=== PATIENT | male | born 1960 | race Caucasian/White ===

== ENCOUNTER 2021-12-21 11:57 | Emergency (ER) | payer SELFPAY ==
--- OUTSIDE RECORDS SUMMARY | 2021-12-21 12:01 | XMS REPORT | Continuity of Care Document ---
:1960 Author Organization [facility] t Address [address] Manzanares [address] [place] [id number] Care Team Providers Name Role Phone Unavailable Unavailable Unavailable Problems This patient has no known problems. Allergies, Adverse Reactions, Alerts This patient has no known allergies or adverse reactions. Medications This patient has no known medications. Procedures This patient has no known procedures. Results Test Description Test Time Test Comments Results Result Comments Source THYROID II PROFILE (TU,T4,FTI,TSH) 2021-11-14 06:28:44 Test Item Value Reference Range Interpretation Comme nts T-UPTAKE (test code = 2817) 33.1 % 24.3-39.0 THYROX. BIND. CAPAC. (test 1.0 0.8-1.3 NOTE: THYROXINE code = 62984) BINDING CAPACI TY IS INVERSELY RELATED TO T-UP TAKE,DECREASED WITH HYPERTHYRO IDISM AND LOW THYROID BINDING GLOBULIN (TBG),INCREASED IN HYPOTHYROIDISM OR WITH HIGH TBG. T4 (THYROXINE) (test code = 4.1 UG/DL 4.5-10.5 L 2818) CORRECTED T4 (FTI) (test 4.1 UG/DL 4.2-11.6 L code = 2820) TSH, THIRD GENERATION (test 3.380 UIU/ML 0.400-4.100 code = 2821) COMPREHENSIVE METABOLIC [id number] 04:33:43 Test Item Value Reference Range Interpretation Comments GLUCOSE (test code = 102 MG/DL 70-99 H 2216) BUN (test code = 10 MG/DL 6-20 2207) CREATININE (test 1.02 MG/DL 0.80-1.40 EFFECTIVE code = 2214) 10/20/2021, [facility] HAS IMPLEMENTED THE NKF-ASN RECOMME NDED KD-EPI EGF R REFIT CALCULATI ON THAT DOES NOT INCLUDE A COEFFICIENT FOR RACE. FOR MORE INFORMATION, SE E ANNOUNCEMENT [email or web address] eGFR (2020 CKD-EPI) 85 ML/MIN/1.73 >60 (test code = 16246) CALC BUN/CREAT (test 10 RATIO 6-28 code = 2235) SODIUM (test code = 139 MEQ/L 522-689 3086) POTASSIUM (test code 4.5 MEQ/L 3.5-5.4 = 2227) CHLORIDE (test code 99 MEQ/L 95-107 = 2214) CARBON DIOXIDE (test 25 MEQ/L 19-31 code = 220) CALCIUM (test code = 10.1 MG/DL 8.5-10.5 2208) PROTEIN, TOTAL (test 7.7 G/DL 6.1-8.3 code = 222) ALBUMIN (test code = 5.1 G/DL 3.5-5.2 2200) CALC GLOBULIN (test 2.6 G/DL 1.9-3.7 code = 224) CALC A/G RATIO (test 2.0 RATIO 1.0-2.6 code = 2233) BILIRUBIN, TOTAL 0.5 MG/DL See_Comment [Automated message] (test code = 2206) The syste m which generated this result transmit jose reference range : <=1.2. The refe rence range was not u sed to interpret th is result as normal/abnormal . ALKALINE PHOSPHATASE 61 U/L 40-123 (test code = 2203) AST (test code = 20 U/L 9-50 2217) ALT (test code = 17 U/L 5-50 2218) LIPID [id number] 04:33:43 Test Item Value Reference Range Interpretation Comments CHOLESTEROL (test 324 MG/DL <200 H code = 2210) TRIGLYCERIDES (test 384 MG/DL <150 H code = 2232) HDL CHOLESTEROL (test 66 MG/DL >39 code = 2220) CALC LDL CHOL (test 193 MG/DL <100 H NOTE: C ALCULATED LDL code = 2237) IS BASED ON RICH-HSU METHOD WHICHINCLUDES ADJUSTABLE TRIGLYCERIDE:VL DL CHOLESTEROL RAT IO.THIS FACTOR VARIES B Y MEASURED TRIGLY CERIDE AND NON-HDLCHOL ESTEROL CONCENTRATIONS WITH INCREASED CALCU LATED LDL SEENIN HIGH ER TRIGLYCERIDE OR LOWER NON-HDL SPECIME NS. FOR MOREINFORMATION , SEE CLIENT ANNOUNCE MENT AT [email or web address] RISK RATIO LDL/HDL 2.92 RATIO <3.55 UN LESS (test code = 2238) OTHERWISE INDICATED, ALL TESTING PER [facility], [place]. [address] [place] [address] LABORATORY DIRE CTOR: TOMY WEBBER M.D. CLIA NUMBER [id number] CAP ACCREDITATION N O. [id number]
[2021-12-21] MEDS ORDERED: ONDANSETRON 4 MG (ODT) TAB ONE (12:57)
[2021-12-21] MEDS ORDERED: MORPHINE 4 MG/ML SYR ONE (12:57)
[2021-12-21] MEDS ORDERED: KETOROLAC 30 MG/ML INJ ONE (12:57)
[2021-12-21] MEDS ORDERED: DIAZEPAM 5 MG TABLET ONE (12:57)
--- NOTE | 2021-12-21 13:25 | EDPHYS ---
Physician Documentation [facility] Name: Jessy Gibson Age: 61 yrs Sex: Male : 1960 Arrival Date: 12/21/2021 Time: 12:00 Bed 12 Private MD: ED Physician Jeyson Rincon HPI: 12/21 12:38 This 61 yrs old Male presents to ER via Ambulatory with complaints of Back Pain. jmm 12:38 Associated signs and symptoms: Pertinent negatives: abdominal pain, chest pain, jmm constipation, dysuria, fever, headache, hematuria, incontinence, nausea, numbness, tingling, urinary retention, vomiting, weakness. This is a 61-year-old male with history of chronic lower back pain the presents emerged part with complaints of worsening lower back pain. Denies fever or chills. States this occurs quite regularly and normally needs a course of pain medication and muscle relaxers. Patient states that he is still trying to establish himself with pain management.. Historical: - Allergies: 12:09 GABAPENTIN; jl7 - PMHx: 12:09 Chronic back pain; jl7 - Immunization history:: Client reports having NOT received the Covid vaccine. - Social history:: Smoking status: Patient denies any tobacco usage or history of. ROS: 13:23 Constitutional: Negative for fever, chills, and weight loss, Cardiovascular: Negative jmm for chest pain, palpitations, and edema, Respiratory: Negative for shortness of breath, cough, wheezing, and pleuritic chest pain, Abdomen/GI: Negative for abdominal pain, nausea, vomiting, diarrhea, and constipation. 13:23 Back: Positive for pain with movement. 13:23 All other systems are negative. Exam: 13:23 Constitutional: This is a well developed, well nourished patient who is awake, alert, jmm and in no acute distress. Head/Face: atraumatic. Eyes: EOMI, no conjunctival erythema appreciated ENT: Moist Mucus Membranes Neck: Trachea midline, Supple Chest/axilla: Normal chest wall appearance and motion. Cardiovascular: Regular rate and rhythm. No edema appreciated Respiratory: Normal respirations, no respiratory distress appreciated Abdomen/GI: Non distended, soft 13:23 MS/ Extremity: Moves all extremities, no obvious deformities appreciated, no edema noted to the lower extremities Neuro: Awake and alert Psych: Behavior is normal, Mood is normal, Patient is cooperative and pleasant 13:23 Back: pain, that is moderate, of the left low back, ROM is painful, CVA tenderness, is absent, vertebral tenderness, is not appreciated. Vital Signs: 12:08 BP 160 / 112; Pulse 93; Resp 17; Temp 98.2; Pulse Ox 98% ; Weight 86.18 kg; Height 5 jl7 ft. 5 in. (165.10 cm); Pain 9/10; 12:45 BP 149 / 99; Pulse 91; Resp 18; Pulse Ox 99% on R/A; ld1 12:08 Body Mass Index 31.62 (86.18 kg, 165.10 cm) jl7 MDM: 12:38 Patient medically screened. [facility] 13:24 Data reviewed: vital signs, nurses notes. Counseling: I had a detailed discussion with [facility] the patient and/or guardian regarding: the historical points, exam findings, and any diagnostic results supporting the discharge/admit diagnosis, the need for outpatient follow up, to return to the emergency department if symptoms worsen or persist or if there are any questions or concerns that arise at home. Administered Medications: 13:00 Drug: morphine 4 mg Route: IM; Site: right gluteus; ld1 13:00 Drug: Ketorolac 60 mg Route: IM; Site: left gluteus; ld1 13:00 Drug: Zofran (Ondansetron) 4 mg Route: PO; ld1 13:00 Drug: Valium (diazepam) 5 mg Route: PO; ld1 Disposition: 19:28 Co-signature as Attending Physician, Jeyson Rincon MD I agree with the assessment and kdr plan of care. Disposition Summary: 12/21/21 13:24 Discharge Ordered Location: Home [facility] Condition: Stable [facility] Diagnosis - Low back pain [facility] Followup: [facility] - With: Private Physician - When: 2 - 3 days - Reason: Recheck today's complaints, Continuance of care, Re-evaluation by your physician Discharge Instructions: - Discharge Summary Sheet [facility] - Chronic Back Pain [facility] Forms: - Medication Reconciliation Form [facility] - Thank You Letter [facility] - Antibiotic Education [facility] - Prescription Opioid Use [facility] Prescriptions: - Zanaflex 4 mg Oral Tablet - take 1 tablet by ORAL route every 8 hours As needed; 20 tablet; Refills: 0, jmm Product Selection Permitted - Diclofenac Sodium 75 mg Oral Tablet Sustained Release - take 1 tablet by ORAL route 2 times per day; 30 tablet; Refills: 0, Product [facility] Selection Permitted Signatures: Jeyson Rincon MD MD kdr Mickail, Joel, PA PA jmm Leal, Jahala, RN RN jl7 Mechelle Joshua RN RN ld1 Corrections: (The following items were deleted from the chart) 12:09 12:09 Allergies: No Known Allergies; sarah jl7
--- NOTE | 2021-12-21 13:25 | ER ---
Nurse's Notes [facility] Name: Jessy Gibson Age: 61 yrs Sex: Male : 1960 Arrival Date: 12/21/2021 Time: 12:00 Bed 12 Private MD: Diagnosis: Low back pain Presentation: 12/21 12:08 Chief complaint: Patient states: Low back pain. Coronavirus screen: At this time, the 7 client does not indicate any symptoms associated with coronavirus-19. Ebola Screen: No symptoms or risks identified at this time. Initial Sepsis Screen: Does the patient meet any 2 criteria? No. Patient's initial sepsis screen is negative. Does the patient have a suspected source of infection? No. Patient's initial sepsis screen is negative. Risk Assessment: Do you want to hurt yourself or someone else? Patient reports no desire to harm self or others. Onset of symptoms is unknown. 12:08 Method Of Arrival: Ambulatory [facility] 12:08 Acuity: NAKUL 4 jl7 Triage Assessment: 12:09 General: Appears in no apparent distress. uncomfortable, Behavior is cooperative, jl7 anxious. Pain: Complains of pain in low back area Pain currently is 9.5 out of 10 on a pain scale. Musculoskeletal: Swelling absent. Historical: - Allergies: 12:09 GABAPENTIN; jl7 - PMHx: 12:09 Chronic back pain; jl7 - Immunization history:: Client reports having NOT received the Covid vaccine. - Social history:: Smoking status: Patient denies any tobacco usage or history of. Screenin:18 Abuse screen: Denies threats or abuse. Denies injuries from another. Nutritional ld1 screening:. Tuberculosis screening: No symptoms or risk factors identified. Fall Risk None identified. Assessment: 12:45 General: Appears in no apparent distress. comfortable, Behavior is calm, cooperative, ld1 appropriate for age. Pain: Complains of pain in back Pain does not radiate. Pain currently is 9 out of 10 on a pain scale. Quality of pain is described as stabbing, throbbing, Pain began gradually, Is continuous. 12:45 Neuro: Level of Consciousness is awake, alert, obeys commands, Oriented to person, ld1 place, time, situation. Cardiovascular: Capillary refill < 3 seconds Patient's skin is warm and dry. Respiratory: Airway is patent Respiratory effort is even, unlabored. GI: Abdomen is flat, non-distended. : No signs and/or symptoms were reported regarding the genitourinary system. EENT: No signs and/or symptoms were reported regarding the EENT system. Derm: No signs and/or symptoms reported regarding the dermatologic system. Musculoskeletal: Reports pain in back. Vital Signs: 12:08 BP 160 / 112; Pulse 93; Resp 17; Temp 98.2; Pulse Ox 98% ; Weight 86.18 kg; Height 5 jl7 ft. 5 in. (165.10 cm); Pain 9/10; 12:45 BP 149 / 99; Pulse 91; Resp 18; Pulse Ox 99% on R/A; ld1 12:08 Body Mass Index 31.62 (86.18 kg, 165.10 cm) jl7 ED Course: 12:00 Patient arrived in ED. mr 12:09 Triage completed. jl7 12:09 Arm band placed on right wrist. [facility] 12:12 Urbano Hollis PA is PHCP. [facility] 12:12 Jeyson Rincon MD is Attending Physician. [facility] 12:21 Mechelle Joshua, ISAIAH is Primary Nurse. ld1 13:18 Patient has correct armband on for positive identification. Bed in low position. Call ld1 light in reach. Side rails up X2. Pulse ox on. NIBP on. Door closed. Noise minimized. 13:18 No provider procedures requiring assistance completed. ld1 13:30 IV discontinued, intact, bleeding controlled, No redness/swelling at site. ld1 Administered Medications: 13:00 Drug: morphine 4 mg Route: IM; Site: right gluteus; ld1 13:00 Drug: Ketorolac 60 mg Route: IM; Site: left gluteus; ld1 13:00 Drug: Zofran (Ondansetron) 4 mg Route: PO; ld1 13:00 Drug: Valium (diazepam) 5 mg Route: PO; ld1 Outcome: 13:24 Discharge ordered by . [facility] 13:29 Discharged to home ambulatory. ld1 13:29 Condition: stable 13:29 Discharge instructions given to patient, Instructed on discharge instructions, follow up and referral plans. medication usage, Demonstrated understanding of instructions, follow-up care, medications, Prescriptions given X 2. 13:30 Patient left the ED. ld1 Signatures: Urbano Hollis PA PA [facility]r Maryann Nguyen RN RN jl7 Mechelle Joshua RN RN ld1 Corrections: (The following items were deleted from the chart) 12:09 12:09 Allergies: No Known Allergies; sarah jl7
[2021-12-21 13:33] VITALS: TEMP 98.2
[2021-12-21 13:34] VITALS: BP 149/99; O2SAT 99
== END 2021-12-21 13:30 | disposition home or self-care (01) ==
LOC: ER 11:57
DX: M54.50 Low back pain, unspecified (principal); Z88.8 Allergy status to other drugs, medicaments and biological substances
CPT/HCPCS: 96372; 99283